=== PATIENT | female | born 1970 | race Caucasian/White ===

== ENCOUNTER 2017-09-29 19:47 | Emergency (ER) | payer OTHER ==
[~2017-09-29] VITALS: Ht 167.6 cm; Wt 54.4 kg
[2017-09-29 20:21] VITALS: BP 160/99
--- NOTE | 2017-09-29 20:21 | NUR ---
PT DEINSE#39 WITH [employer] FROM INTERMEDIATE, PT C/O CHRONIC BACK PAIN AND PEOPLE WERE YELLING AT HER IN INTERMEDIATE. PT AOX3 RR EVEN AND UNLABORED. NO SOB NOTED. NAD NOTED. NO NVD AT THIS TIME. PT GOWNED WAITING FOR MD CAM. [employer] AT BEDSIDE
--- NOTE | 2017-09-29 20:26 | NUR ---
[facility] AT BEDSIDE FOR EVAL.
--- NOTE | 2017-09-29 20:44 | NUR ---
DPatient discharged under [employer] custody in stable condition. Written and verbal after care instructions given. Patient verbalizes understanding of instruction.ambulatory with a steady gait
== END 2017-09-29 20:47 ==
LOC: ER 19:49
DX: M54.9 Dorsalgia, unspecified (principal); G89.29 Other chronic pain; I70.8 Atherosclerosis of other arteries; F17.200 Nicotine dependence, unspecified, uncomplicated
CPT/HCPCS: 99283; A4606; Z7610